=== PATIENT | male | born 1955 | race Caucasian/White ===

== ENCOUNTER 2019-07-26 16:46 | Inpatient (IN) | payer OTHER ==
[~2019-07-26] VITALS: Ht 175.3 cm; Wt 93.9 kg
--- NOTE | 2019-07-26 17:00 | NUR ---
PATIENT TO ER #2 WITH STAT EKG, MONITOR, SAO2 AND ABP
--- NOTE | 2019-07-26 17:01 | NUR ---
Note undone in ED - 07/26/19 at 1827 by JAYLYNEDZOILA Patient presents to ER C/O SOB Patient A&Ox4, ambulatory to ER, afebrile, skin pink & warm, pain 8/, denies N/V/D, retracting. Patient placed on pulse-ox and classroom monitor upon arrival,saturation 93%, placed on2 LPM O2 & RT called to bedside. Patient states cough & cold symptoms started Wednesday, difficulty breathing started last night and becam worse today.
--- NOTE | 2019-07-26 17:01 | NUR ---
Patient presents to ER C/O Chest pain. Patient A&Ox4, ambulatory to ER, afebrile, skin pink & warm, pain 3/10, denies N/V/D. Patient placed on pulse-ox and library monitor upon arrival. Patient states chest pain started several weeks ago but worse last night. PT states he has Hx of aortic valve replacement.
--- NOTE | 2019-07-26 17:02 | NUR ---
EKG performed at by Lizet LINDA. Physician given copy of EKG for review.
[2019-07-26 17:04] VITALS: BP_SYST 162
[2019-07-26] MEDS ORDERED: NITROGLYCERIN 1 INCH (GM) OINT. TP ONE (17:04)
[2019-07-26] MEDS ORDERED: MORPHINE 4 MG/ML INJ. SYRINGE IVP ONE (17:04)
[2019-07-26] MEDS ORDERED: INSU10VI4 SUBQ (17:04)
[2019-07-26] MEDS ORDERED: CORCR20 PO (17:04)
[2019-07-26] MEDS ORDERED: AMLO5TAB92 PO (17:04)
[2019-07-26] MEDS ORDERED: METF500T20 PO (17:04)
[2019-07-26] MEDS ORDERED: WARF3TAB PO (17:04)
--- NOTE | 2019-07-26 17:04 | NUR ---
# 20 gauge angiocath placed to left arm. Use of asceptic technique. Opsite placed over site. Blood return noted. Blood for lab drawn from site. Flushed with 10 cc of normal saline. No evidence of infiltration noted. Patient tolerated well.
--- NOTE | 2019-07-26 17:05 | NUR ---
ER at bedside examining patient.
[2019-07-26 17:30] LABS: BASOPHILS # (AUTO) 0.1 K/uL (0.0-0.2); BASOPHILS % (AUTO) 0.7 % (0.0-2.0); EOSINOPHILS # (AUTO) 0.1 K/uL (0.0-0.4); EOSINOPHILS % (AUTO) 1.6 % (0.0-4.0); HEMATOCRIT 39.8 % (36-54); HEMOGLOBIN 13.5 g/dL (14.0-18.0); LYMPHOCYTES # (AUTO) 1.1 K/uL (1.0-5.5); LYMPHOCYTES % (AUTO) 13.5 % (20.5-51.5); MEAN CORPUSCULAR HEMOGLOBIN 30 pg (27-31); MEAN CORPUSCULAR HGB CONC 34 % (32-36); MEAN CORPUSCULAR VOLUME 89 fL (79.0-98.0); MONOCYTES # (AUTO) 0.6 K/uL (0.0-1.0); MONOCYTES % (AUTO) 7.1 % (1.7-9.3); NEUTROPHILS # (AUTO) 6.2 K/uL (1.8-7.7); NEUTROPHILS % (AUTO) 77.1 % (40.0-70.0); PLATELET COUNT (AUTO) 193 K/uL (130-430); RED BLOOD CELL COUNT(AUTO) 4.45 MIL/uL (4.2-6.2); RED CELL DISTRIBUTION WIDTH 14.7 % (9.0-15.0); WHITE BLOOD COUNT (AUTO) 8.1 K/uL (4.8-10.8)
[2019-07-26] MEDS ORDERED: ENALAPRILAT DIHYDRATE 1.25 MG/ML VIAL IVP ONE (17:30)
[2019-07-26] MEDS ORDERED: hydrALAZINE HCL 20 MG/ML VIAL IVP ONE (17:30)
[2019-07-26 17:37] LABS: CALCIUM 8.7 mg/dL (8.4-11.0); CREATININE 1.33 mg/dL (0.55-1.30); POTASSIUM 4.7 mmol/L (3.5-5.1)
[2019-07-26 17:43] LABS: ALBUMIN 3.2 g/dL (3.4-4.8); TOTAL BILIRUBIN 0.5 mg/dL (0.0-1.0)
[2019-07-26] MEDS ORDERED: WARF2.5T82 GT (17:52)
[2019-07-26] MEDS ORDERED: LISI1TAB28 PO (17:52)
[2019-07-26] MEDS ORDERED: METF-381 PO (17:52)
[2019-07-26] MEDS ORDERED: LIP20 PO (17:52)
[2019-07-26] MEDS ORDERED: CARV12.548 PO (17:52)
[2019-07-26 18:21] LABS: INR 2.6 (0.80-1.20)
[2019-07-26 18:58] LABS: PROTHROMBIN TIME 25.2 SECS (9.5-12.5)
[2019-07-26] MEDS ORDERED: HEPARIN 25,000 UNITS/D5W 250ML 250 ML IV ONE (19:15)
[2019-07-26] MEDS ORDERED: HEPARIN SODIUM,PORCINE 5000 UNITS/ML VIAL IVP ONE (19:15)
--- NOTE | 2019-07-26 19:15 | NUR ---
REPORT TO CHEYENNE LINDA
--- NOTE | 2019-07-26 19:38 | NUR ---
pt and family informed ED staff, other family member will bring daily med list to floor unit during visit MD and zinc furnace charger aware
[2019-07-26] MEDS ORDERED: HEPARIN SODIUM,PORCINE 3000 UNITS/0.6 ML BOLUS IVP PRN (20:15)
[2019-07-26] MEDS ORDERED: HEPARIN SODIUM,PORCINE 2000 UNITS/0.4 ML BOLUS IVP PRN (20:15)
--- NOTE | 2019-07-26 20:17 | NUR ---
Patient will be admitted to care of Dr. Ziegler. Admitted to Tele unit. Will go to room 124A. Belongings list completed. Complete and up to date summary report printed. SBAR report to be given at bedside with opportunity for questions.
--- NOTE | 2019-07-26 20:17 | NUR ---
ADMISSION NOTE Received patient from ER via rashard, received report from MADDI peres. Patient admitted with diagnosis of chest pain, nonstemi. Patient oriented to hospital routine, call light, toileting and safety-patient verbalized understanding.
--- NOTE | 2019-07-26 20:17 | NUR ---
Transfer to Tele via ACLS protocol. Licensed nurse present. IV present no signs or symptoms of infiltration.
[2019-07-26 20:22] VITALS: BP_SYST 130
[2019-07-26] MEDS: HEPARIN 25,000 UNITS/D5W 250ML 250 ML IV PRN (20:34)
--- NOTE | 2019-07-26 21:04 | NUR ---
Cony Jackman s/w Susan
--- NOTE | 2019-07-26 21:42 | NUR ---
DR CUNNINGHAM, PAIN MEDICATION ORDERS Patient is states he would like another dose of pain medication when he has chest pain. Notified Dr Cunningham, and she ordered morphine 2mg ONE time dose. Dr Cunningham stated that she will place other orders personally. Addendum: 07/26/19 at 2145 by Aminah La RN CONTINUATION OF NOTES Also informed Dr Cunningham regarding TROPONIN 5.541. Dr Cunningham stated that she is aware and that she will place new orders personally.
[2019-07-26] MEDS ORDERED: MORPHINE 2 MG/ML INJ. SYRINGE IVP ONE (22:00)
--- NOTE | 2019-07-26 22:00 | NUR ---
Patient ambulated independently to the restroom and back to bed without assistance. Gait is steady. Refuses bed alarm at this time. and daughter is at the bedside. Plan of care discussed. Patient and family verbalized understanding.
[2019-07-26] MEDS ORDERED: MORPHINE 2 MG/ML INJ. SYRINGE IVP PRN (22:45)
[2019-07-26] MEDS ORDERED: ACETAMINOPHEN 325 MG TABLET PO PRN (22:45)
[2019-07-26] MEDS ORDERED: MORPHINE 4 MG/ML INJ. SYRINGE IVP PRN (22:45)
--- NOTE | 2019-07-26 23:43 | NUR ---
Patient is resting comfortably in bed, awake and alert. Stated he is currently listening to sermons on his phone. Breathing even and unlabored with visible chest rise and fall noted. No SOB, no acute distress, no complaints pain or facial grimacing noted. Bed is locked, lowest position, 2x side rails up, bed alarm is on. Call light is within reach. Heparin drip infusing at 10ml/hr per MD order, see eMAR.
[2019-07-27 00:30] VITALS: BP_SYST 191
--- NOTE | 2019-07-27 02:02 | NUR ---
Patient is resting comfortably in bed, eyes closed. Breathing even and unlabored with visible chest rise and fall noted. No SOB, no acute distress, no signs of pain or facial grimacing noted. Bed is locked, lowest position, 2x side rails up, bed alarm is on. Call light is within reach. IV site intact, currently infusing heparin drip at 10ml/hr.
--- NOTE | 2019-07-27 02:32 | NUR ---
Consultation Paged Reason for Consultation: Elevated Troponin Was consult called: Y Person who was notified: Distribution Supervisor 22 Consulting Physician: Lalo Pack Sanforizer Ordering Physician: Dr. Jackman
[2019-07-27 02:34] VITALS: BP_SYST 133
--- NOTE | 2019-07-27 02:45 | NUR ---
Veneer Stock Layer at the bedside to draw labs for the patient. Patient aroused to voice, awake and alert. Patient reminded that he needs another PTT lab draw due to the Heparin drip, and verbalizes understanding. Lab draw taken.
--- NOTE | 2019-07-27 03:20 | NUR ---
Patient complaining of 5/10 mid chest pain. Provided morphine 2mg IVP ONE time dose per MD order, see eMAR for details.
--- NOTE | 2019-07-27 03:30 | NUR ---
Received call from [facility] with results. PTT 72.5. No changes needed to the heparin drip according to the heparin protocol at this time, see eMAR. Heparin drip infusing at 10ml/hr. Will continue plan of care. Charge nurse is aware.
[2019-07-27 04:07] LABS: BASOPHILS # (AUTO) 0.1 K/uL (0.0-0.2); BASOPHILS % (AUTO) 0.9 % (0.0-2.0); EOSINOPHILS # (AUTO) 0.1 K/uL (0.0-0.4); EOSINOPHILS % (AUTO) 1.6 % (0.0-4.0); HEMATOCRIT 38.5 % (36-54); LYMPHOCYTES # (AUTO) 1.5 K/uL (1.0-5.5); LYMPHOCYTES % (AUTO) 16.7 % (20.5-51.5); MEAN CORPUSCULAR HEMOGLOBIN 30 pg (27-31); MEAN CORPUSCULAR HGB CONC 34 % (32-36); MEAN CORPUSCULAR VOLUME 90 fL (79.0-98.0); MONOCYTES # (AUTO) 0.7 K/uL (0.0-1.0); MONOCYTES % (AUTO) 7.8 % (1.7-9.3); NEUTROPHILS # (AUTO) 6.4 K/uL (1.8-7.7); PLATELET COUNT (AUTO) 183 K/uL (130-430); RED CELL DISTRIBUTION WIDTH 14.7 % (9.0-15.0); WHITE BLOOD COUNT (AUTO) 8.8 K/uL (4.8-10.8)
[2019-07-27 04:23] LABS: INR 2.4 (0.80-1.20); PROTHROMBIN TIME 23.9 SECS (9.5-12.5)
--- NOTE | 2019-07-27 04:50 | NUR ---
Gerda called the nurses station. Stated that the patient's Troponin is 26.162, and 25.865 on a repeat. Gerda stated that he believes the specimen is contaminated, and he will instruct the fitter armament to obtain another specimen.
[2019-07-27 05:37] LABS: ALBUMIN 2.8 g/dL (3.4-4.8); CALCIUM 8.2 mg/dL (8.4-11.0); CREATININE 1.04 mg/dL (0.55-1.30); TOTAL BILIRUBIN 0.6 mg/dL (0.0-1.0)
--- NOTE | 2019-07-27 05:45 | NUR ---
CALLING DR HALLMAN. ELEVATED TROPONIN Received call from [facility] stated that the TROPONIN is 26.128. Spoke with John. Awaiting for call back.
[2019-07-27] MEDS: INSULIN REGULAR, HUMAN 100 UNITS/ML, 10 ML VIAL (humuLIN R) SUBCUT PRN ×4 (06:04→20:16)
--- NOTE | 2019-07-27 06:19 | NUR ---
Dr Duarte called the nurses station. Informed him that the patient's Troponin is 26.128. Dr Duarte ordered STAT EKG, and NPO david. RT notified regarding stat EKG. Addendum: 07/27/19 at 0654 by Aminah La RN Continuation of Notes Dr Duarte stated that she would like Dr Garcia to look at the EKG and get his opinion on the situation when Dr Garcia comes in today at 0800. Will endorse to [facility] nurse to report to Dr Garcia.
--- NOTE | 2019-07-27 06:45 | NUR ---
Dr Jackman at the nurses station. Informed her regarding the latest Troponin 26.128, and EKG results showing ST elevation. Also informed her that Dr Duarte is aware, and we are still awaiting for Dr Garcia for his opinion on this matter. Dr Jackman stated that the patient will likely need to be NPO and transferred to a labor conciliator.
--- NOTE | 2019-07-27 07:31 | NUR ---
Closing Notes Report given to Mayra-MADDI at the bedside. No SOB, no acute distress, no complaints of pain at this time. Heparin drip infusing at 10ml/hr per MD order. Bed is locked, lowest position, 2x side rails up. Refuses bed alarm at this time. Call light is within reach. Fall and safety precautions maintained. All needs have been met during this shift. Endorsed to Berto to follow up with Dr Garcia regarding EKG results.
[2019-07-27 08:00] VITALS: BP_SYST 139
--- NOTE | 2019-07-27 08:10 | NUR ---
RECEIVED REPORT FROM RESOURCE RN. Pt. AAOX4, SKIN W/D TO TOUCH, AT BEDSIDE. Pt. IS PENDING POS. TRANSFER TO A HIGHER LEVEL OF CARE FOR A DIAGNOSTIC / INTERVENTIONAL CARDIAC CATH.
[2019-07-27] MEDS ORDERED: amLODIPine BESYLATE 10 MG TABLET PO ONE (08:45)
[2019-07-27] MEDS ORDERED: CARVEDILOL 12.5 MG TABLET (COREG) PO ONE (09:00)
--- NOTE | 2019-07-27 11:00 | NUR ---
PT HAS BEEN NPO PENDING POS TRANSFER. SEEN BY SCRIPT EDITOR, PATIENT WILL NOT TRANSFER TODAY DUE TO INCREASED INR. WILL GET NEW ORDER TO CHANGE NPO STATUS.
[2019-07-27 12:36] VITALS: BP_SYST 155
--- NOTE | 2019-07-27 13:19 | NUR ---
BS DONE = 216 MG/DL, 4 UNITS INSULIN COV. GIVEN. PT HAS NPO, NOW W/ NEW DIET ORDER FOR CARDIAC, LOW CHOL/ FAT 2 GM SODIUM. ATE LUNCH, STATED "IT WAS GREAT", INGESTED 100% OF MEAL.
[2019-07-27 16:00] VITALS: BP_SYST 133
--- NOTE | 2019-07-27 16:37 | NUR ---
PATIENT OOB TO CHAIR WATCHING TV, VOICES NO C/O PAIN OR DISCOMFORT.NO BM. WILL CONT TO MONITOR FOR CHANGES.
--- NOTE | 2019-07-27 19:15 | NUR ---
REPORT TO 7 PM RN. PATIENT OOB TO CHAIR NAD NOTED.
--- NOTE | 2019-07-27 19:30 | NUR ---
PM ASSESSMENT REPORT RECEIVED FROM AM RN. PT RECEIVED SITTING UP IN CHAIR WITH EYES OPEN, AAOX4, AND ABLE TO VERBALIZE NEEDS. VSS NO S/S OF ACUTE DISTRESS NOTED. PT ON RA. LAC 20G PATENT AND INTACT. NO C/O PAIN OR DISCOMFORT AT THIS TIME. SAFETY PRECAUTIONS IN PLACE. WILL CONTINUE TO MONITOR PT.
[2019-07-27 20:00] VITALS: BP_SYST 130
[2019-07-27] MEDS: CARVEDILOL 12.5 MG TABLET (COREG) PO SCH (20:10)
[2019-07-27] MEDS: HEPARIN 25,000 UNITS/D5W 250ML 250 ML IV PRN (20:18)
[2019-07-27] MEDS ORDERED: ATORVASTATIN 20 MG TABLET PO SCH (21:00)
--- NOTE | 2019-07-27 23:00 | NUR ---
ENDORSEMENT BEDSIDE REPORT GIVEN TO MIYA LINDA USING SBAR APPROACH TO ASSUME CARE.
[2019-07-28] VITALS: BP_SYST 140
--- NOTE | 2019-07-28 | NUR ---
P NPO AFTER MIDNIGHT FOR POSSIBLE CORONARY ANGIOGRAM IN AM,PT ASLEEP AT THIS TIME.
--- NOTE | 2019-07-28 04:00 | NUR ---
REMAINS NPO ,HEPARIN REMAINS AT 10 CC/HR ,AMBULATED TP BATHROOM IN NO DISTRESS
[2019-07-28 05:58] LABS: INR 1.9 (0.80-1.20); PROTHROMBIN TIME 18.8 SECS (9.5-12.5)
--- NOTE | 2019-07-28 07:40 | NUR ---
OPENING NOTES, RECEIVED PT IN BED, PT IS AAOX4, DENIES PAIN, NO SOB, NO RESP DISTRESS. VITALS WNL, NO FEVER. HEPARIN DRIP INFUSING WELL VIA LEFT AC IV ACCESS, NO BLEEDING NOTED OR REPORTED BY PT. PT KEP NPO FOR ANGIOGRAM. SAFETY PRECAUTION IN PLACE. CALL LIGHT IN REACH, BED IN LOW POSITION. WILL CONT TO MONITOR.
[2019-07-28 08:05] VITALS: BP_SYST 139
[2019-07-28] MEDS: CARVEDILOL 12.5 MG TABLET (COREG) PO SCH (08:18)
--- NOTE | 2019-07-28 08:34 | NUR ---
AM MEDS GIVEN EARLIER WITH SIPS OF WATER PER .
[2019-07-28] MEDS ORDERED: amLODIPine BESYLATE 10 MG TABLET PO SCH (09:00)
[2019-07-28 10:37] VITALS: BP_SYST 132
[2019-07-28 10:43] VITALS: BP_SYST 132
[2019-07-28] MEDS: INSULIN REGULAR, HUMAN 100 UNITS/ML, 10 ML VIAL (humuLIN R) SUBCUT PRN (11:50)
[2019-07-28 12:16] VITALS: BP_SYST 125
--- NOTE | 2019-07-28 12:22 | NUR ---
SBAR REPORT GIVEN TO RN. [facility] OF [facility] PAY PER CLICK STRATEGIST.
--- NOTE | 2019-07-28 13:00 | NUR ---
D/C Patient Patient given medication reconciliation form and D/C instructions. Exit Care provided. Patient verbalized understanding. MD discussed with patient the results and treatment provided. Ambulatory with steady gait for discharge to [facility]. Patient in stable condition, ID band removed. IV catheter removed kept , intact and dressing applied, no active bleeding. Rx of given. Patient educated on pain management. All belongings sent with patient.
== END 2019-07-28 13:00 | disposition short-term general hospital (02) | DRG 280 ==
LOC: SED 16:46 → STU 19:34
PROVIDERS: ADMIT Internal Medicine Hospice and Palliative Medicine; ATTEND Internal Medicine Hospice and Palliative Medicine
DX: I21.4 Non-ST elevation (NSTEMI) myocardial infarction (principal); R65.11 Systemic inflammatory response syndrome (SIRS) of non-infectious origin with acute organ dysfunction; E43 Unspecified severe protein-calorie malnutrition; N17.9 Acute kidney failure, unspecified; E78.5 Hyperlipidemia, unspecified; R79.89 Other specified abnormal findings of blood chemistry; I45.10 Unspecified right bundle-branch block; E11.9 Type 2 diabetes mellitus without complications; I10 Essential (primary) hypertension; Z95.2 Presence of prosthetic heart valve; Z83.3 Family history of diabetes mellitus; Z89.429 Acquired absence of other toe(s), unspecified side; Z79.899 Other long term (current) drug therapy; Z79.01 Long term (current) use of anticoagulants
CPT/HCPCS: 36415; 71045; 80053; 82962; 83880; 84484; 85025; 85379; 85610-TC; 85730-TC; 93005; 93306; 96374; 96375; 99291; G0378; J0360; J1644; J2270